=== PATIENT | male | born 1950 | race Caucasian/White ===

== ENCOUNTER 2017-06-16 07:16 | Outpatient (CLI) | payer MEDICARE ==
--- NOTE | 2017-06-16 08:50 | MRI ---
BRAIN MRI WITHOUT CONTRAST: DATE: 06/16/17. COMPARISON: None. HISTORY: Headache, intracerebral hemorrhage of cerebellum. TECHNIQUE: Multiplanar, multisequence MR imaging of the brain provided without contrast. FINDINGS: The diffusion weighted imaging demonstrates no evidence for acute infarction. There is an oval lesion in the right cerebellar hemisphere which measures 4.0 x 1.6 cm. It is T1 and T2 hyperintense centrally with a peripheral T1 and T2 hypointense rim. Gradient echo imaging demons trates blooming artifact along the peripheral margin of this lesion. This is consistent with the pro vided history of intraaxial hemorrhage within the right cerebellar hemisphere. No evidence for an ad ditional focus of intraaxial hemorrhage is seen on gradient echo imaging. There are a few foci of in creased T2 and FLAIR signal within the white matter suggesting small-vessel disease. There is moderate degenerative change at the atlantoaxial interspace. Regional bone marrow signal in tensity appears grossly unremarkable. There is near-complete opacification of the maxillary sinus on the left. There is partial opacificat ion of bilateral ethmoid air cells, right maxillary sinus, left frontal sinus, and left sphenoid sinu s. Mastoid air cells grossly unremarkable. Arterial flow voids at axial level of the skull base appear grossly unremarkable on the T2 weighted i maging. IMPRESSION: Evidence of an intraaxial hematoma in the right cerebellar hemisphere measuring 1.6 x 4.0 cm. Follow up imaging to document resolution is advised. Followup imaging should include postcontrast imaging t o assess for an underlying vascular lesion or neoplastic process. CODE T POS: BRISEIDA
== END 2017-06-16 07:17 | disposition home or self-care (01) ==
LOC: MRI 07:16
PROVIDERS: ATTEND Neurological Surgery
DX: I61.4 Nontraumatic intracerebral hemorrhage in cerebellum (principal)
CPT/HCPCS: 70551

== ENCOUNTER 2022-08-15 19:30 | Outpatient (CLI) | payer MEDICARE | END 2022-08-15 19:31 | disposition home or self-care (01) | LOC: SLEEPLAB 19:30 | PROVIDERS: ATTEND Internal Medicine Critical Care Medicine | DX: G47.33 Obstructive sleep apnea (adult) (pediatric) (principal); G47.31 Primary central sleep apnea | CPT/HCPCS: 95811 ==